=== PATIENT | male | born 1995 | race Caucasian/White ===

== ENCOUNTER 2018-01-20 16:13 | Emergency (ER) | payer OTHER ==
[2018-01-20] MEDS: IBUPROFEN 600 MG TAB PO (16:53)
== END 2018-01-20 16:54 | disposition home or self-care (01) ==
LOC: FTE 16:13
DX: M79.601 Pain in right arm (principal); Z87.891 Personal history of nicotine dependence
CPT/HCPCS: 99282; Z7502

== ENCOUNTER 2018-05-20 11:51 | Emergency (ER) | payer SELFPAY, OTHER ==
[2018-05-20] MEDS: IBUPROFEN 600 MG TAB PO (13:15)
[2018-05-20] MEDS: HYDROCODONE/APAP (5/325) TAB PO (13:15)
[2018-05-20] MEDS: ONDANSETRON (ODT) 4 MG TAB ODT (13:15)
== END 2018-05-20 14:35 | disposition home or self-care (01) ==
LOC: FTE 11:51
DX: S39.012A Strain of muscle, fascia and tendon of lower back, initial encounter (principal); F17.210 Nicotine dependence, cigarettes, uncomplicated; S13.9XXA Sprain of joints and ligaments of unspecified parts of neck, initial encounter; R11.10 Vomiting, unspecified; V49.49XA Driver injured in collision with other motor vehicles in traffic accident, initial encounter
CPT/HCPCS: 72040; 72100; 99283-25